=== PATIENT | male | born 1960 | race Asian ===

== ENCOUNTER 2020-04-20 09:48 | Emergency (ER) | payer MEDICAID ==
[~2020-04-20] VITALS: Ht 160 cm; Wt 90.7 kg
[2020-04-20 09:48] VITALS: BP_SYST 166
[2020-04-20] MEDS ORDERED: LISINOPRIL 10 MG TABLET (PRINIVIL) PO ONE (10:15)
[2020-04-20 10:36] VITALS: BP_SYST 167
== END 2020-04-20 10:36 ==
LOC: SED 09:48
DX: Z02.89 Encounter for other administrative examinations (principal); I10 Essential (primary) hypertension; E11.9 Type 2 diabetes mellitus without complications; E78.00 Pure hypercholesterolemia, unspecified
CPT/HCPCS: 99283